=== PATIENT | female | born 1955 | race Caucasian/White ===

== ENCOUNTER → 2018-09-16 07:59 | Outpatient (CLI) | payer OTHER, SELFPAY ==
--- NOTE | 2018-09-16 | DI.ECHO.S_ITS ---
[place] [facility]---------+ [facility] +---------+ : : [address] : [address] : : : : [id number] : : : : Phone: [phone]+ Echocardiogram Report + + :Name: AMINA BOND Study Date: 09/16/2018 Height: 68 in : :[facility] Exam Location: [place] Weight: 145 lb : : Gender: Female BSA: 1.8 m2 : :: 1955 Age: 63 yrs BP: 107/85 mmHg: :Reason For Study: Palpitations : : Performed By: Rosario Page : :Referring: OWEN ACUNA : + + Interpretation Summary The ejection fraction is estimated to be 60-65%. Both atria are moderately dilated. The ascending aorta is mildly enlarged. There is no significant valvular heart disease. Procedure: A two-dimensional transthoracic echocardiogram with color flow and Doppler was performed. The study quality was technically adequate. There is no prior echocardiogram noted for this patient. The heart rate ranged between 60-76 bpm during the study. The patient had frequent PACs during the exam. The patient had occasional PVCs during the exam. Left Ventricle: The left ventricle is normal in size. There is normal left ventricular wall thickness. The ejection fraction is estimated to be 60-65%. There are no focal wall motion abnormalities. Right Ventricle: The right ventricle is normal in size and function. Atria: Both atria are moderately dilated. There is no Doppler evidence for an interatrial shunt. Mitral Valve: The mitral valve is normal in structure and function. There is trace mitral regurgitation. Aortic Valve: The aortic valve is trileaflet. The aortic valve opens well. No aortic regurgitation is present. Tricuspid Valve: The tricuspid valve is normal in structure and function. There is trace tricuspid regurgitation. Pulmonic Valve: The pulmonic valve is not well visualized. Great Vessels: The aortic root is normal size. The ascending aorta is mildly enlarged. The aortic arch is normal in size. The pulmonary artery is normal size. The IVC is dilated (diameter is greater than 2.1 cm) yet it collapses greater than 50% with a sniff. This suggests a right atrial pressure of 8 mm Hg. Pericardium/ Pleura There is no pericardial effusion. There is no pleural effusion. MMode/2D Measurements & Calculations LVIDd: 4.5 cm LVOT diam: 2.0 cm LVIDs: 2.9 cm Ao root diam: 3.2 cm FS: 35.9 % asc Aorta Diam: 3.6 cm EPSS: 0.00 cm Ao Arch Diam (Prox Trans): 2.6 cm IVSd: 0.76 cm LVPWd: 0.90 cm LV campbell. diameter/BSA (cm/m^2): 2.5 LV sys. diameter/BSA (cm/m^2): 1.6 LA A2 area: 26.3 cm2 RA long axis: 5.1 cm LA A4 area: 22.4 cm2 RA area: 19.3 cm2 LA length (vol): 5.9 cm RA vol: 62.7 ml LA vol: 84.2 ml RA : 35.2 ml/m2 LA vol index: 47.2 ml/m2 IVC diam: 2.2 cm RVD1 (basal): 3.4 cm Doppler Measurements & Calculations Ao V2 max: 101.2 cm/sec LVOT Max Deven: 91.9 cm/sec Ao V2 mean: 74.4 cm/sec LV V1 max P.4 mmHg Ao max P.1 mmHg LV V1 VTI: 16.9 cm Ao mean P.4 mmHg KENAN(I,D): 2.8 cm2 Ao V2 VTI: 19.4 cm KENAN(V,D): 2.9 cm2 sev ratio: 0.87 KENAN indexed to BSA (cm^2/m^2): 1.6 MV E max deven: 89.6 cm/sec TR max deven: 205.0 cm/sec Med Peak E' Deven: 7.6 cm/sec TR max P.8 mmHg E/E' med: 11.8 PA V2 max: 60.2 cm/sec Lat Peak E' Deven: 14.7 cm/sec PA V2 mean: 44.7 cm/sec E/E' lat: 6.1 PA mean P.85 mmHg E/e' average: 9.0 PA Accel Time: 0.12 sec MV P1/2t: 54.0 msec MV P1/2t max deven: 90.2 cm/sec SV(LVOT): 53.8 ml MVA(P1/2t): 4.1 cm2 Reading Physician:10:42 AM
== END ==
PROVIDERS: PCP Nurse Practitioner; Visit Provider Internal Medicine Interventional Cardiology
DX: R00.2 Palpitations (principal); I77.89 Other specified disorders of arteries and arterioles; I47.1 Supraventricular tachycardia; R06.09 Other forms of dyspnea; E78.5 Hyperlipidemia, unspecified
CPT/HCPCS: 93306

== ENCOUNTER → 2021-09-25 13:32 | Outpatient (CLI) | payer MEDICARE, OTHER, SELFPAY ==
[2021-09-25 14:36] LABS: COVID19 -Nasal RAPID Negative (Negative)
== END ==
PROVIDERS: Referring Provider Internal Medicine; Visit Provider Internal Medicine
DX: Z20.822 Contact with and (suspected) exposure to COVID-19 (principal)
CPT/HCPCS: 87635; C9803

== ENCOUNTER → 2021-09-25 13:36 | Outpatient (CLI) | payer MEDICARE, OTHER, SELFPAY ==
--- NOTE | 2021-10-01 08:19 | PM.PFT.1 ---
Pulmonary Function Test Referral & Results Date Patient Seen: 09/25/21 Requesting provider: Denis Kelly Results: The spirometry demonstrates an FVC of 2.54 L which is 70% of predicted. The FEV1 was measured at 1.86 L which is 68% of predicted. The FEV1/FVC ratio was 73 which is 96% of predicted. Following the administration of bronchodilator there was no notable change. Lung volumes show an SVC of 2.67 L which is 80% of predicted. The diffusing capacity was measured at 21.20 which is 71% of predicted. The maximum voluntary ventilation was probably normal Interpretation: This study demonstrates possibly very mild obstructive lung disease based on reduction FEV1 although FEV1/FVC ratio is preserved and there really is no evidence of notable benefit following bronchodilator administration There is a minimal reduction in lung volumes suggesting the presence of very mild restrictive lung disease and this probably explains the minor abnormality of the FEV1 above There is a minimal reduction diffusing capacity suggesting the presence of disease at the capillary alveolar level Clinical correlation suggested
== END ==
PROVIDERS: Referring Provider Internal Medicine Interventional Cardiology; Visit Provider Internal Medicine Interventional Cardiology
DX: R06.00 Dyspnea, unspecified (principal); Z92.29 Personal history of other drug therapy; Z20.822 Contact with and (suspected) exposure to COVID-19; J98.8 Other specified respiratory disorders
CPT/HCPCS: 87635; 94060; 94726; 94729; C9803

== ENCOUNTER → 2023-06-02 10:11 | Outpatient (CLI) | payer MEDICARE, OTHER, SELFPAY ==
--- NOTE | 2023-06-02 10:13 | DI.CT.S_ITS ---
PROCEDURE: CT CHEST WO CON INDICATIONS: MULTIPLE NODULES TECHNIQUE: Noncontrast 2.0-2.5 mm thick sections acquired from the pulmonary apices to the posterior costophrenic angles. 7 mm thick axial MIP and 5 mm coronal and sagittal reformats were then acquired. For radiation dose reduction, the following was used: automated exposure control, adjustment of mA and/or kV according to patient size. COMPARISON: Outside Facility, , CT CHEST HIGH RES, 01/27/2022, 10:58. FINDINGS: Image quality: Diagnostic. Lower Neck: No enlarged lymph nodes. Thyroid: No thyroid nodules which require sonographic follow up, per consensus guidelines. Axillae: No enlarged lymph nodes. Chest Wall: Unremarkable. Bones: Unremarkable. Lungs and Pleura: No pneumothorax or pleural effusions. No consolidation. Small lung nodules are present, unchanged. Reference nodules: -3 mm; right upper lobe anterior; series 3, image 78. -4 mm; right lower lobe; series 3, image 194. -2 mm; left lower lobe; series 3, image 238. Heart: Heart size is normal. No pericardial effusion. Thoracic Vessels: The aorta and pulmonary arteries demonstrate normal size. Mediastinum and [place]: No enlarged lymph nodes. Esophagus: No wall thickening. Small hiatal hernia. Upper Abdomen: Visualized upper abdomen solid organs and bowel loops appear normal. IMPRESSION: 1. Stable lung nodules. Please see enclosed follow-up recommendation. If the patient has high risk for lung cancer, consider a follow-up CT in 12 months. Fleischner Society criteria for SOLID lung nodule followup. Nodule size (mm)Low-risk patientHigh-risk patient<6 (single or multiple)No routine followup.Optional CT at 12 months. 6-8 (single or multiple)CT at 6-12 months, then optional CT at 18-24 mo.CT at 6-12 months, then CT at 18-24 months. >8 (single)CT at 3 months, PET-CT, or biopsy. Same as for low-risk pts. >8 (multiple)CT at 3-6 months, then optional CT at 18-24 mo.CT at 3-6 months, then CT at 18-24 months. Fleischner Society criteria for SUB-SOLID lung nodule followup. Solitary pure ground-glass nodules<6 mm (ground glass or part solid)No followup needed. 6 mm or larger (ground glass)CT at 6-12 months to confirm persistence, then CT every 2 years until 5 years.6 mm or larger (part solid)CT at 3-6 months to confirm persistence, then annual CT until 5 years if unchanged and solid component remains <6 mm. Multiple sub-solid nodules<6 mmCT at 3-6 months, then CT consider at 2 & 4 years for high risk patients. [address] at 3-6 months. Subsequent management based on most suspicious lesions. Recommendations do not apply to lung cancer screening, patients with immunosuppression, or patients with known primary cancer. Dictated by: Selina Hoffman M.D. on 06/14/2023 at 17:01 Approved by: Selina Hoffman M.D. on 06/15/2023 at 13:41
== END ==
PROVIDERS: PCP Family Medicine; Referring Provider Family Medicine; Visit Provider Family Medicine
DX: R91.8 Other nonspecific abnormal finding of lung field (principal); K44.9 Diaphragmatic hernia without obstruction or gangrene; Z79.899 Other long term (current) drug therapy
CPT/HCPCS: 71250; 94060; 94726; 94729

== ENCOUNTER → 2024-11-27 09:57 | Outpatient (CLI) | payer MEDICARE, OTHER, SELFPAY | LOC: RESP 09:58 | PROVIDERS: PCP Family Medicine; Referring Provider Internal Medicine; Visit Provider Internal Medicine | DX: J45.50 Severe persistent asthma, uncomplicated (principal); R06.02 Shortness of breath | CPT/HCPCS: 94060; 94726; 94729 ==